=== PATIENT | female | born 1970 | race Caucasian/White ===

== ENCOUNTER 2018-01-14 14:23 | Emergency (ER) | payer MEDICAID, SELFPAY ==
[~2018-01-14] VITALS: Ht 162.6 cm; Wt 67.4 kg
[2018-01-14 14:24] VITALS: BP 109/75
[2018-01-14] MEDS ORDERED: KETOROLAC 30 MG/1 ML IM ONE (15:00)
[2018-01-14] MEDS ORDERED: DIAZEPAM 5 MG TABLET PO ONE (15:00)
[2018-01-14] MEDS ORDERED: DIAZEPAM 5 MG TABLET ONE (15:05)
[2018-01-14] MEDS ORDERED: KETOROLAC 30 MG/1 ML ONE (15:05)
[2018-01-14 15:24] LABS: MICROSCOPIC NOT IND
[2018-01-14 15:28] LABS: CULTURE INDICATED? NO
== END 2018-01-14 15:39 | disposition home or self-care (01) ==
LOC: ED 15:00
DX: S39.012A Strain of muscle, fascia and tendon of lower back, initial encounter (principal); M51.37 Other intervertebral disc degeneration, lumbosacral region; M41.26 Other idiopathic scoliosis, lumbar region; F17.210 Nicotine dependence, cigarettes, uncomplicated; X58.XXXA Exposure to other specified factors, initial encounter; Y93.89 Activity, other specified; Y92.89 Other specified places as the place of occurrence of the external cause; Y99.8 Other external cause status
CPT/HCPCS: 72110; 81003; 96372; 99285; J1885

== ENCOUNTER 2021-02-14 13:55 | Emergency (ER) | payer MEDICAID ==
[~2021-02-14] VITALS: Ht 162.6 cm; Wt 67.5 kg
--- NOTE | 2021-02-14 15:18 | NUR ---
PT TO RM FROM [facility]
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
[2021-02-14] MEDS ORDERED: ONDANSETRON ODT 4 MG PO ONE (16:00)
[2021-02-14] MEDS ORDERED: KETOROLAC 30 MG/1 ML IM ONE (16:00)
[2021-02-14] MEDS ORDERED: DIPH,PERTUSS(ACELL),TET VAC/PF 0.5 ML IM-VACC ONE ×2 (16:00→16:09)
[2021-02-14] MEDS ORDERED: ONDANSETRON ODT 4 MG ONE (16:08)
[2021-02-14] MEDS ORDERED: KETOROLAC 30 MG/1 ML ONE (16:08)
[2021-02-14 16:43] VITALS: BP 117/82
== END 2021-02-14 16:45 | disposition home or self-care (01) ==
LOC: ED 16:30
DX: S00.33XA Contusion of nose, initial encounter (principal); S00.81XA Abrasion of other part of head, initial encounter; S09.90XA Unspecified injury of head, initial encounter; W01.0XXA Fall on same level from slipping, tripping and stumbling without subsequent striking against object, initial encounter; Y93.89 Activity, other specified; Y92.410 Unspecified street and highway as the place of occurrence of the external cause; Y99.8 Other external cause status
CPT/HCPCS: 70450; 70486; 90471; 90715; 96372; 99285; J1885; Q0162